=== PATIENT | female | born 1960 | race African-American/Black ===

== ENCOUNTER 2016-11-22 08:11 | Emergency (ER) | payer MEDICAID ==
[~2016-11-22] VITALS: Ht 165.1 cm; Wt 89.0 kg
[2016-11-22 08:14] VITALS: Ht 165.1 cm; Wt 89.0 kg
[2016-11-22] MEDS ORDERED: MUPI22OI2 TOP (08:38)
[2016-11-22] MEDS ORDERED: HYDR28.336 TP (08:38)
--- NOTE | 2016-11-22 11:15 | ERD ---
ER Documentation Chief Complaint Date/Time DATE: 11/22/16 TIME: 11:12 Chief Complaint possible insect bites on back HPI This is a 56-year-old female presenting to the emergency department complaining of lesions on her back that are itchy. She states that it is also located where her bra strap is therefore it is irritating it for the past couple days. Patient states the pain is mild in severity. Denies any fevers. She states she has not used any creams or medications. She denies any relevant medical history ROS All systems reviewed and are negative except as per history of present illness. Medications Home Meds Active Scripts Hydrocortisone (Hydrocortisone Oi) 28.35 Gm Oint, 1 APPLIC TP BID for 10 Days Prov:SEAN MOJICA PA-C 11/22/16 Mupirocin* (Bactroban*) 2% -22 Gram Oint...g., 1 APPLIC TOP TID for 5 Days, #1 TUB SITE OF APPLICATION: Prov:SEAN MOJICA PA-C 11/22/16 PMhx/Soc Medical and Surgical Hx: pt denies Medical Hx, pt denies Surgical Hx Hx Alcohol Use: No Hx Substance Use: No Hx Tobacco Use: No Smoking Status: Never smoker Physical Exam Vitals Vital Signs Date Time Temp Pulse Resp B/P Pulse Ox O2 Delivery O2 Flow Rate FiO2 11/22/16 08:14 98.2 90 18 121/82 99 Physical Exam General: WD/WN, in no apparent distress, non-toxic appearing HENT: NC/AT Eyes: Conjunctiva normal Neck: Supple Pulm: Clear to auscultation, normal labored breathing; no wheezing/rales/ rhonchi heard CV: Good capillary refill GI: Non-distended, no guarding Back: No masses Ext: No clubbing, cyanosis, or edema Neuro: Moves on all fours Skin: 3 erythematous papules on the posterior back, 1 of the lesions has a mild scab in the middle Psych: Normal mood Procedures/MDM This is a 56-year-old female presenting to the emergency department with lesions on her posterior back that are itchy and mildly tender, this is likely insect bites with irritation from her bra strap. There was no evidence of cellulitis, anaphylaxis. Patient appears well and speaking clearly. Patient can benefit from outpatient medications hydrocortisone 2.5% ointment. I discussed with patient to follow-up with the primary care physician. Discussed return to the ER for any worsening signs or symptoms. She understands and agrees to this plan Departure Diagnosis: Primary Impression: Insect bite Condition: Stable Patient Instructions: Insect Bites and Stings Referrals: EMERGENCY,DOCTOR GROUP Additional Instructions: FOLLOW UP WITH YOUR PRIMARY CARE PHYSICIAN TOMORROW.Return to this facility if you are not improving as expected. Take all medicines as directed. Return to this facility if you are not improving as expected. SEAN MOJICA PA-C Nov 22, 2016 11:14
[2016-11-22] MEDS ORDERED: CEPH-443 PO (16:16)
[2016-11-22] MEDS ORDERED: SULF1TAB31 PO (16:16)
[2016-11-22] MEDS ORDERED: IBUP400T22 PO (16:18)
== END 2016-11-22 09:02 | disposition home or self-care (01) ==
LOC: FTE 08:11
DX: S20.469A Insect bite (nonvenomous) of unspecified back wall of thorax, initial encounter (principal); W57.XXXA Bitten or stung by nonvenomous insect and other nonvenomous arthropods, initial encounter; Y92.9 Unspecified place or not applicable
CPT/HCPCS: 99283

== ENCOUNTER 2016-11-22 15:34 | Emergency (ER) | payer MEDICAID ==
[~2016-11-22] VITALS: Wt 96.0 kg
[~2016-11-22 15:34] MED LIST: HYDR28.336 TP; MUPI22OI2 TOP
[2016-11-22] MEDS ORDERED: SULF1TAB31 PO (16:16)
[2016-11-22] MEDS ORDERED: CEPH-443 PO (16:16)
[2016-11-22] MEDS ORDERED: IBUP400T22 PO (16:18)
--- NOTE | 2016-11-22 16:23 | ERD ---
ER Documentation Chief Complaint Date/Time DATE: 11/22/16 TIME: 16:20 Chief Complaint HERE EARLY THIS AM C/O ABCESSES ON BACK? HPI 56-year-old female patient with no significant past medical history presents the ED complaining of worsening lesions on her back. Reports that it is slightly painful and itchy. States that her bra strap was irritating the area. 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 Patient states that she feels like it is getting bigger. Denies any fever, chills, back pain, chest pain, shortness of breath, wheezing, neck stiffness. ROS All systems reviewed and are negative except as per history of present illness. Medications Home Meds Active Scripts Ibuprofen* (Motrin*) 400 Mg Tab, 400 MG PO Q6, #30 TAB Prov:ONEL PINEDA PA-C 11/22/16 Sulfamethoxazole/Trimethoprim* (Bactrim Ds* Tablet) 1 Each Tablet, 1 TAB PO BID , #7 TAB Prov:ONEL PINEDA PA-C 11/22/16 Cephalexin* (Keflex*) 500 Mg Capsule, 500 MG PO QID for 7 Days, CAP Prov:ONEL PINEDA PA-C 11/22/16 Hydrocortisone (Hydrocortisone Oi) 28.35 Gm Oint, 1 APPLIC TP BID for 10 Days Prov:SEAN MOJICA PA-C 11/22/16 Mupirocin* (Bactroban*) 2% -22 Gram Oint...g., 1 APPLIC TOP TID for 5 Days, #1 TUB SITE OF APPLICATION: Prov:SEAN MOJICA PA-C 11/22/16 PMhx/Soc Medical and Surgical Hx: pt denies Medical Hx, pt denies Surgical Hx Hx Alcohol Use: No Hx Substance Use: No Hx Tobacco Use: No Physical Exam Vitals Vital Signs Date Time Temp Pulse Resp B/P Pulse Ox O2 Delivery O2 Flow Rate FiO2 11/22/16 15:37 98.7 99 18 124/94 99 Physical Exam Const: [id number], well-nourished. In no acute distress. Head: Atraumatic, normocephalic Eyes: Normal Conjunctiva without injection ENT: Normal external ear, nose and mouth. Neck: Full range of motion. No meningismus. Resp: Clear to auscultation bilaterally. No wheezing, rhonchi, rales, or crackles. No accessory muscle use. No retractions. Cardio: Regular rate and rhythm, no murmurs Skin: No petechiae or rashes Back: No midline tenderness. No CVA tenderness. Ext: No cyanosis, or edema. Cap refill less than 2 seconds. Distal pulses intact bilaterally. 3 erythematous 1 cm papules with 1 papule that is 2 cm in size with one scab in the middle. Nonfluctuant. Induration noted. Slightly erythematous but no edema noted. No lymphatic streaking. Neur: Awake and alert. Normal gait and coordination. Muscle strength 5/5. Sensation intact bilaterally. Psych: Normal Mood and Affect Procedures/MDM This is a 56-year-old female patient with no significant past medical history presents the ED complaining of lesions on her back. Patient is afebrile and nontoxic-appearing. Patient has normal vital signs. Patient likely has an early abscess secondary to a possible insect bite. No incision or drainage noted at this time. Low suspicion for scabies, SJS/TEN, erythema multiforme, sepsis, cellulitis, necrotizing fascitis, gangrene, meningococcemia or other emergent conditions. Discharge medications: Keflex, Bactrim, Ibuprofen Wound check recommended in 2 days. Follow up with primary care physician in 1-2 days. Instructed patient to return to the ED sooner for any worsening symptoms. Patient's questions were answered. Patient understood and agreed with discharge plan. Patient discharged stable. Departure Diagnosis: Primary Impression: Abscess Condition: Stable Patient Instructions: Abscess, Antiobiotic Treatment Only Referrals: COMMUNITY CLINICS YOU HAVE RECEIVED A MEDICAL SCREENING EXAM AND THE RESULTS INDICATE THAT YOU DO NOT HAVE A CONDITION THAT REQUIRES URGENT TREATMENT IN THE EMERGENCY DEPARTMENT. FURTHER EVALUATION AND TREATMENT OF YOUR CONDITION CAN WAIT UNTIL YOU ARE SEEN IN YOUR DOCTORS OFFICE WITHIN THE NEXT 1-2 DAYS. IT IS YOUR RESPONSIBILITY TO MAKE AN APPOINTMENT FOR FOLOW-UP CARE. IF YOU HAVE A PRIMARY DOCTOR --you should call your primary doctor and schedule an appointment IF YOU DO NOT HAVE A PRIMARY DOCTOR YOU CAN CALL OUR PHYSICIAN REFERRAL HOTLINE AT IF YOU CAN NOT AFFORD TO SEE A PHYSICIAN YOU CAN CHOSE FROM THE FOLLOWING [facility] [address] [place] [facility] [address] [place] [facility] [address] [facility] [address] [facility] [address] [facility]. [address] [facility]. [facility] YOU HAVE RECEIVED A MEDICAL SCREENING EXAM AND THE RESULTS INDICATE THAT YOU DO NOT HAVE A CONDITION THAT REQUIRES URGENT TREATMENT IN THE EMERGENCY DEPARTMENT. FURTHER EVALUATION AND TREATMENT OF YOUR CONDITION CAN WAIT UNTIL YOU ARE SEEN IN YOUR DOCTORS OFFICE WITHIN THE NEXT 1-2 DAYS. IT IS YOUR RESPONSIBILITY TO MAKE AN APPOINTMENT FOR FOLOW-UP CARE. IF YOU HAVE A PRIMARY DOCTOR --you should call your primary doctor and schedule and appointment IF YOU DO NOT HAVE A PRIMARY DOCTOR YOU CAN CALL OUR PHYSICIAN REFERRAL HOTLINE AT . IF YOU CAN NOT AFFORD TO SEE A PHYSICIAN YOU CAN CHOSE FROM THE FOLLOWING [facility]: [facility] [address] [place] [address] [facility] [address] [place] [address] [facility] [address] [place] [address] [facility] URGENT [facility]SPECIALTIES Additional Instructions: Follow up in 2 days in your clinic for wound check. Call your primary care doctor TOMORROW for an appointment during the next 2 days.See the doctor sooner or return here if your condition worsens before your appointment time - fever, worsening redness or swelling, chills. ONEL PINEDA PA-C Nov 22, 2016 16:23
== END 2016-11-22 16:31 | disposition home or self-care (01) ==
LOC: FTE 15:34
DX: L02.212 Cutaneous abscess of back [any part, except buttock and flank] (principal)
CPT/HCPCS: 99284

== ENCOUNTER 2017-04-06 08:10 | Emergency (ER) | payer SELFPAY ==
[~2017-04-06] VITALS: Ht 165.1 cm; Wt 96.5 kg
[~2017-04-06 08:10] MED LIST changes: +CEPH-443 PO; +IBUP400T22 PO; +SULF1TAB31 PO
[2017-04-06 08:23] VITALS: Ht 165.1 cm; Wt 96.5 kg
[2017-04-06] MEDS ORDERED: IBUPROFEN 800 MG TAB PO ONE (09:00)
--- NOTE | 2017-04-06 09:06 | ERD ---
ER Documentation Chief Complaint Chief Complaint RT SHOULDER PAIN X2 WEEKS, GETTING WORSE TODAY HPI This is a 56-year-old female presenting to emerge department for right shoulder pain 2 weeks. Patient states pain is getting worse today and rates pain 8/10 to anterior right shoulder. No recent trauma or injury to area. Patient states she "cleans a lot" on the weekends and is unsure if this is the cause of her pain. No fevers or chills. No bruising or erythema. Patient has been taking aspirin at home without relief of pain. ROS All systems reviewed and are negative except as per history of present illness. Medications Home Meds Active Scripts Ibuprofen* (Motrin*) 600 Mg Tab, 600 MG PO Q6, #30 TAB Prov:JOSEPHINE TREADWELL NP 04/06/17 Ibuprofen* (Motrin*) 400 Mg Tab, 400 MG PO Q6, #30 TAB Prov:ONEL PINEDA PA-C 11/22/16 Sulfamethoxazole/Trimethoprim* (Bactrim Ds* Tablet) 1 Each Tablet, 1 TAB PO BID , #7 TAB Prov:ONEL PINEDA PA-C 11/22/16 Cephalexin* (Keflex*) 500 Mg Capsule, 500 MG PO QID for 7 Days, CAP Prov:ONEL PINEDA PA-C 11/22/16 Hydrocortisone (Hydrocortisone Oi) 28.35 Gm Oint, 1 APPLIC TP BID for 10 Days Prov:SEAN MOJICA PA-C 11/22/16 Mupirocin* (Bactroban*) 2% -22 Gram Oint...g., 1 APPLIC TOP TID for 5 Days, #1 TUB SITE OF APPLICATION: Prov:SEAN MOJICA PA-C 11/22/16 Allergies Allergies: Coded Allergies: No Known Allergy (Unverified , 04/06/17) PMhx/Soc Medical and Surgical Hx: pt denies Medical Hx History of Surgery: Yes (appendectomy) Hx Alcohol Use: No Hx Substance Use: No Hx Tobacco Use: No Smoking Status: Current every day smoker Physical Exam Vitals Vital Signs Date Time Temp Pulse Resp B/P Pulse Ox O2 Delivery O2 Flow Rate FiO2 04/06/17 08:23 98.2 98 16 134/86 97 Physical Exam Const: No acute distress, alert Head: Atraumatic Eyes: Normal Conjunctiva ENT: Normal External Ears, Nose and Mouth. Neck: Full range of motion..~ No meningismus. Resp: Clear to auscultation bilaterally Cardio: Regular rate and rhythm, no murmurs Abd: Soft, non tender, non distended. Normal bowel sounds Skin: No petechiae or rashes Back: No midline or flank tenderness Ext: No edema. Unable to fully extend or flex right shoulder. Can externally rotate right shoulder without difficulty. Sensation is fully intact. Radial pulse 2+ bilaterally. Neur: Awake and alert Psych: Normal Mood and Affect Results 24 hrs Current Medications Medications (Trade) Dose Ordered Sig/Nakia Route PRN Reason Start Time Stop Time Status Last Admin Dose Admin Ibuprofen (Motrin) 800 mg ONCE ONCE PO 04/06/17 09:00 04/06/17 09:01 DC 04/06/17 08:47 Procedures/MDM MDM: This is a 56-year-old female presenting to emerge department for right shoulder pain 2 weeks. Patient rates pain has worsened today rating pain 8/10 to anterior right shoulder. Pain is worse with movement. Patient denies any trauma or injury to area. Patient took aspirin at home without relief of symptoms. Patient is afebrile and vital signs are stable. X-ray right shoulder reviewed by radiologist as unremarkable. Patient given ibuprofen 800 mg p.o. while in the ED. Upon reassessment, patient states pain has improved. No swelling, ecchymosis or erythema noted. No laceration. Consulted Dr. Prabhu Naik regarding this patient and we agree that patient is appropriate for outpatient management. Low suspicion for acute dislocation or fracture. Patient is appropriate for outpatient management will be given prescription for ibuprofen 600 mg #30. Instructed patient to follow-up with primary care provider in the next 2-3 days for reassessment and additional management. Return to ED for any high fever, chest pain, difficulty breathing, shortness breath, wheezing, vomiting, diarrhea, abdominal pain or any new or worsening symptoms. Patient verbalizes understanding. All questions answered at discharge. Disclaimer: Inadvertent spelling and grammatical errors are likely due to EHR/ dictation software use and do not reflect on the overall quality of patient care. Also, please note that the electronic time recorded on this note does not necessarily reflect the actual time of the patient encounter. Departure Diagnosis: Primary Impression: Shoulder pain Chronicity: acute Laterality: right Qualified Code: M25.511 - Acute pain of right shoulder Condition: Stable JOSEPHINE TREADWELL NP Apr 06, 2017 09:06
[2017-04-06] MEDS ORDERED: IBUP-1542 PO (09:39)
--- NOTE | 2017-04-06 15:12 | RADRPT ---
PROCEDURE: XR Right Shoulder. CLINICAL INDICATION: Right shoulder pain for 2 weeks. TECHNIQUE: Three views. Frontal internal rotation, frontal external rotation, and oblique. COMPARISON: No prior study is available for comparison. FINDINGS: There is no fracture or dislocation. The soft tissues are normal. Articular surfaces are intact. There is no lytic or blastic lesion. There is no radiopaque foreign body. IMPRESSION: 1. Normal images of the right shoulder. RPTAT: QQ .Olegario Shaw MD, MD Date Time Electronically viewed and signed by .Olegario Shaw MD, on 04/06/2017 15:12 .R/
== END 2017-04-06 09:51 | disposition home or self-care (01) ==
LOC: FTE 08:10
DX: M25.511 Pain in right shoulder (principal); F17.210 Nicotine dependence, cigarettes, uncomplicated